=== PATIENT | male | born 1965 | race African-American/Black ===

== ENCOUNTER 2024-10-13 11:45 | Emergency (ER) | payer MEDICAID ==
[~2024-10-13] VITALS: Ht 172.7 cm; Wt 70.0 kg
[2024-10-13 11:52] VITALS: O2SAT 100
[2024-10-13] MEDS: LIDOCAINE 5% PATCH TOP SCH (12:37)
[2024-10-13] MEDS: ACETAMINOPHEN 325MG TABLET PO ONE (12:37)
[2024-10-13] MEDS: KETOROLAC 30MG/ML VIAL IM ONE (12:37)
[2024-10-13] MEDS ORDERED: METH4TAB95 MT (14:10)
[2024-10-13] MEDS ORDERED: LIDO-53 TP (14:10)
[2024-10-13] MEDS ORDERED: NAPR-679 MT (14:10)
[2024-10-13] MEDS ORDERED: ACET-2708 MT (14:10)
[2024-10-13 14:31] VITALS: BP 125/98; PULSE 61; RESP 14; TEMP 37.1; O2SAT 100
== END 2024-10-13 14:32 | disposition home or self-care (01) ==
LOC: ER 11:45
DX: M47.22 Other spondylosis with radiculopathy, cervical region (principal); I10 Essential (primary) hypertension; Z79.899 Other long term (current) drug therapy
CPT/HCPCS: 99283; 96372; J1885